=== PATIENT | male | born 1965 | race Caucasian/White ===

== ENCOUNTER → 2018-03-09 16:43 | Outpatient (CLI) | payer BC, SELFPAY ==
--- NOTE | 2018-03-09 16:50 | RAD_ITS ---
STUDY: X-RAY - ORBITS REASON FOR EXAM: Male, 53 years old. This study is being performed as a clearance examination for exclusion of orbital metal, prior to the performance of an MRI examination. TECHNIQUE: 2 view(s) of the orbits were obtained. COMPARISON: None. FINDINGS: Normal bilateral orbits without a metallic orbital foreign body. Normal visualized facial bones. Normal paranasal sinuses. The soft tissue structures are unremarkable. RAD/Orbits for Foreign Body IMPRESSION: No demonstrated metallic orbital foreign body. The patient is cleared for an MRI examination. Electronically Signed: Tim Rodriguez MD at 17:08 EST , Service support ,
--- NOTE | 2018-03-09 17:01 | MRI_ITS ---
STUDY: MRI LUMBAR SPINE WITHOUT CONTRAST REASON FOR EXAM: Male, 53 years old. Low back pain and radiculopathy TECHNIQUE: Standardized fat and water weighted pulse sequences were obtained in the sagittal and axial planes. COMPARISON: None FINDINGS: T12-L1: Mild endplate spurring. Normal disc height, hydration and morphology. Normal bilateral facet joints. Normal central canal and bilateral lateral recesses. Normal bilateral intervertebral neural foramina. Normal lumbar lordosis. There is no substantial scoliosis. Normal conus medullaris that terminates at T12-L1 L1-2: Mild endplate spurring. Normal disc height, hydration and minor bulging of the annulus. Normal bilateral facet joints. Normal central canal and bilateral lateral recesses. Normal bilateral intervertebral neural foramina. L2-3: Mild endplate spurring.. Narrowed disc height, desiccation and mild annular bulge.. Facet arthropathy greater on the left. Normal central canal and bilateral lateral recesses. Mild right neuroforaminal encroachment and moderate narrowing on the left. L3-4: Endplate spurring.. Normal disc height, desiccation and mild annular bulge. Bilateral facet arthropathy. Normal central canal. Moderate bilateral recess and neuroforaminal encroachment. L4-5: Normal endplates. Normal disc height, hydration and minor annular bulge. Mild facet arthropathy and thickening of ligamenta flava. Normal central canal and bilateral lateral recesses. Moderate bilateral recess and neuroforaminal stenosis. L5-S1: Normal endplates. Normal disc height, hydration and minimal annular bulge. Bilateral facet arthropathy. Normal central canal and bilateral lateral recesses. Mild bilateral neural foraminal encroachment Normal visualized sacral ala. Normal visualized paraspinous soft tissue structures. MRI/Spine Lumbar (Routine) IMPRESSION: No evidence for acute fracture or other significant bony pathology. Moderate spondylosis and disc degeneration Multilevel spinal stenosis secondary to disc disease and bony hypertrophy Electronically Signed: Felix Mahajan MD at 22:17 EST , Service support ,
--- OUTSIDE RECORDS SUMMARY | 2018-04-25 23:41 | XMS RPT_ITS | Summary of Care ---
:1965 Author Organization [facility] Address [address] [place] [address] Phone Care Team Providers Name Role Phone LuaRicky camejo Steve RAMIREZ Primary Care Provider Unavailable Encounter Details Date Type Department Care Team Description 03/30/2017 Hospital Encounter [facility] Allergies No Known Allergiesas of this encounter Medications Prescription Sig. Disp. Refills Start Date End Date Status aspirin 81 MG EC tablet Take 81 mg by Active mouth daily. omeprazole (PRILOSEC) 40 Take 1 90 capsule 3 06/09/2016 Active MG capsule capsule (40 mg total) by mouth daily. atorvastatin (LIPITOR) 80 Take 80 mg by Active MG tablet mouth daily. clopidogrel (PLAVIX) 75 Take 1 (one) 90 tablet 3 09/15/2016 Active mg tablet tablet (75 mg total) by mouth daily. hydroCHLOROthiazide Take 1 (one) 90 tablet 3 09/15/2016 Active (HYDRODIURIL) 25 MG tablet (25 mg tablet total) by mouth daily. metoprolol succinate Take 1 (one) 90 tablet 3 09/15/2016 Active (TOPROL-XL) 50 MG 24 hr tablet (50 mg tablet total) by mouth daily. nitroGLYCERIN (NITROSTAT) Place 1 (one) 25 tablet 4 09/15/2016 Active 0.4 MG SL tablet (0.4 tabletIndications: mg total) Coronary artery disease under the involving [place] coronary tongue every artery of [place] heart 5 (five) without angina pectoris minutes as needed for chest pain. valsartan (DIOVAN) 160 MG Take 1 (one) 90 tablet 3 09/15/2016 Active tablet tablet (160 mg total) by mouth daily. levothyroxine (SYNTHROID, Take 125 mcg Active LEVOTHROID) 125 MCG by mouth once tablet daily. fexofenadine (SHIVA) Take 180 mg Active 180 MG tablet by mouth daily. isosorbide mononitrate Take 1 (one) 30 tablet 11 03/31/2017 03/26/2018 Active (IMDUR) 60 MG 24 hr tablet (60 mg tablet total) by mouth daily. VENTOLIN HFA 90 Inhale 2 1 Inhaler 0 03/31/2017 04/30/2017 Active mcg/actuation inhaler (two) puffs every 6 (six) hours as needed for wheezing. as of this encounter Active Problems Problem Noted Date Chest pain 03/30/2017 Last Assessment & Plan: Chronic stable angina pectoris with worsening symptoms when exposed to extreme cold. No evidence of an acute coronary syndrome. Coronary angiogram June 2016 with mild disease in LAD, mild disease in circumflex artery, and moderate nonobstructive stenosis in RCA. Angiographically stenosis appears 70% but FFR was 0.96 which is consistent with nonobstructive disease. Ejection fraction was 55%. Presently ECG without ischemic findings. Troponin remains negative. Given recent documentation of stable coronary arteries disease, I recommend intensification of medical regimen. Recommend increasin g Imdur to 60 mg. Also recommended prophylactic use of sublingual nitroglycerin when planning to do work in cold temperatures. Patient can follow-up with Dr. Pond in [place]. No further inpatient evaluation is indicated at this time. Recommend returning to work on April 02. Coronary artery disease involving [place] coronary artery of [place] heart 09/17/2015 without angina pectoris Overview: 04/2014-Cx and RPL stents Last Assessment & Plan: Feeling better-- lost weight and looks good Imdur working Doing well, Medications reviewed and will continue current meds Followup 1 year Claudication (HCC) 09/17/2015 Overview: R Calf-2016 with 1/2 mile Last Assessment & Plan: Recommended to quit smoking Hyperlipidemia 05/10/2014 Overview: Cannot take statins except low dose lovastatin Last Assessment & Plan: Can take atorvastatin Hypertension 05/09/2014 Last Assessment & Plan: Continue current meds Resolved Problems Problem Noted Date Resolved Date Unstable angina (HCC) 05/09/2014 09/17/2015 Last Assessment & Plan: Pt with recent progressive angina. Cath had high grade Cx which was stented. He has a long RCA lesion we are trying with meds Social History Tobacco Use Types Packs/Day Years Used Date Current Every Day Smoker 1 40 Smokeless Tobacco: Never Used Alcohol Use Drinks/Week oz/Week Comments Yes 0 Standard drinks or equivalent 0.0 Rare alcohol use Sex Assigned at Date Recorded Not on file as of this encounter Miscellaneous Notes Transfer Center Note - Rosangela Rivero RN - 03/30/2017 7:49 PM ESTDx: Chest Pain Narrative: Report per RONAN Rizzo and Alexus RN: 52 yom with left chest pain radiating to left arm for last day. He'd been out splitting wood yesterday and outside today. States he just doesn't feel right and is achy. Chest has a dull ache similar to past chest pain. Has had previous heart caths w/[place] [facility]-up so far is negative. [facility] has no beds and patient requests transfer [place] [facility] [place] to [place] [facility] [place] [facility]. Assessment: AAOx3. Denies SOB or nausea. Skin sallow/warm/dry. Chest ache remains, somewhat intermittent. Patient took ASA 81mg @ home and NTG x1. Patient's bedside. Vitals: 146/81-SB/NSR 50 to 70-22-97.6-99% on rm air. In process of starting an IV Meds given in ED: ASA 81mg. Labs: WBC 7.9, K 3.3, BUN/Cr 10/0.7, Glucose 92, Troponin (-) Radiology/EKG: CXR not read yet. EKG without acute change in this encounter Plan of Treatment Upcoming Encounters Date Type Specialty Care Team Description 06/08/2017 Office Visit Cardiology Gadiel Buckley MD [address] [place] [address] [phone] Health Maintenance Due Date Last Done Comments COLONOSCOPY 1965 HEPATITIS C SCREENING 1965 TETANUS EVERY 10 YR 1965 SEQUENTIAL INFLUENZA VACCINE (#1) 2016 as of this encounter Implants Implanted Type Area Ammonia Distiller Device Identifier Expiration Model / Serial / Date Lot Stent 3.5 X 12 Resolute Otw - [id number] Stent N/A: [employer] [id number] 07/14/2014 [id number] / Implanted: Qty: 1 on 05/09/2014 by Gadiel Buckley MD Heart / [id number] Stent 2.5 X 12 Resolute Otw - [id number] Stent [employer] [id number] 06/06/2015 [id number] / Implanted: Qty: 1 on 05/18/2014 by Gadiel Buckley MD [id number] / [id number] as of this encounter Insurance Payer Benefit Plan / Group Subscriber ID Type Phone Address [employer] MED[employer] [id number] as of this encounter
--- OUTSIDE RECORDS SUMMARY | 2018-04-25 23:41 | XMS RPT_ITS | Summary of Care ---
:1965 Author Organization [facility] Address [address] [phone] Phone Care Team Providers Name Role Phone Stoney Ricky Steve RAMIREZ Primary Care Provider Unavailable Encounter Details Date Type Department Care Team Description 03/30/2017 - [facility] Hospitalists, Generic [address] [id number] Chest pain, unspecified type; 03/31/2017 Rapid Diagnosis Andrea Lerma MD [address] [phone] Hypokalemia; [address] [place] [address] Shawn Long MD [address] [place] [address] ALIS (obstructive sleep apnea); [place] Chronic obstructive pulmonary disease, unspecified COPD type ([facility]) [place] [address] Allergies No Known Allergiesas of this encounter Medications Prescription Sig. Disp. Refills Start End Date Status Date aspirin 81 MG EC tablet Take 81 mg Active by mouth daily. omeprazole (PRILOSEC) 40 Take 1 90 capsule 3 Active MG capsule capsule (40 7 mg total) by mouth daily. atorvastatin (LIPITOR) Take 80 mg Active 80 MG tablet by mouth daily. clopidogrel (PLAVIX) 75 Take 1 (one) 90 tablet 3 Active mg tablet tablet (75 7 mg total) by mouth daily. hydroCHLOROthiazide Take 1 (one) 90 tablet 3 Active (HYDRODIURIL) 25 MG tablet (25 7 tablet mg total) by mouth daily. metoprolol succinate Take 1 (one) 90 tablet 3 Active (TOPROL-XL) 50 MG 24 hr tablet (50 7 tablet mg total) by mouth daily. nitroGLYCERIN Place 1 25 tablet 4 Active (NITROSTAT) 0.4 MG SL (one) tablet 7 tabletIndications: (0.4 mg Coronary artery disease total) under involving sioux the tongue coronary artery of every 5 sioux heart without (five) angina pectoris minutes as needed for chest pain. valsartan (DIOVAN) 160 Take 1 (one) 90 tablet 3 Active MG tablet tablet (160 7 mg total) by mouth daily. levothyroxine Take 125 mcg Active (SYNTHROID, LEVOTHROID) by mouth 125 MCG tablet once daily. fexofenadine (SHIVA) Take 180 mg Active 180 MG tablet by mouth daily. isosorbide mononitrate Take 1 (one) 30 tablet 11 03/26/20 Active (IMDUR) 60 MG 24 hr tablet (60 8 18 tablet mg total) by mouth daily. VENTOLIN HFA 90 Inhale 2 1 Inhaler 0 04/30/19 Active mcg/actuation inhaler (two) puffs 8 18 every 6 (six) hours as needed for wheezing. azithromycin (ZITHROMAX) Take 1 (one) 5 tablet 0 04/05/19 Active 250 MG tablet tablet (250 8 18 mg total) by mouth daily for 5 days. ALLERGY RELIEF, Take 180 mg 03/30/19 Discontinued FEXOFENADINE, 180 mg by mouth 6 18 tablet daily. isosorbide mononitrate Take 1 30 tablet 11 03/30/19 Discontinued (IMDUR) 30 MG 24 hr tablet (30 7 18 tablet mg total) by mouth daily. levothyroxine Take 100 mcg 03/30/19 Discontinued (SYNTHROID, LEVOTHROID) by mouth 18 100 MCG tablet once daily. isosorbide mononitrate Take 30 mg 03/31/19 Discontinued (IMDUR) 30 MG 24 hr by mouth 18 tablet daily. as of this encounter Active Problems Problem [...] Patient can follow-up with Dr. Pond in [place]. No further inpatient evaluation is indicated at this time. Recommend returning to work on April 02. Coronary artery disease involving sioux coronary artery of sioux heart 09/17/2015 without angina pectoris Overview: 04/2014-Cx and RPL stents Last Assessment & Plan: Feeling better-- lost weight and looks good Imdur working Doing well, Medications reviewed and will continue current meds Followup 1 year Claudication ([facility]) 09/17/2015 Overview: R Calf-2016 with 1/2 mile [...] Not on file as of this encounter Last Filed Vital Signs Vital Sign Reading Time Taken Blood Pressure 123/76 03/31/2017 7:52 AM EST Pulse 61 03/31/2017 7:52 AM EST Temperature 36.5 ??C (97.7 ??F) 03/31/2017 7:52 AM EST Respiratory Rate 14 03/31/2017 7:52 AM EST Oxygen Saturation 93% 03/31/2017 7:52 AM EST Inhaled Oxygen Concentration - - Weight 105.3 kg (232 lb 2.3 oz) 03/30/2017 11:29 PM EST Height 180.3 cm (5' 11) 03/30/2017 11:29 PM EST Body Mass Index 32.38 03/30/2017 11:29 PM EST in this encounter Discharge Instructions Arabella Carranza, KOBI - 03/31/2017Bronchitis: Care Instructions Your Care Instructions Bronchitis is inflammation of the bronchial tubes, which carry air to the lungs. The tubes swell andproduce mucus, or phlegm. The mucus and inflamed bronchial tubes make you cough. You may have trouble breathing. Most cases of bronchitis are caused by viruses like those that cause colds. Antibiotics usually do not help and they may be harmful. Bronchitis usually develops rapidly and lasts about 2 to 3 weeks in otherwise healthy people. Follow-up care is a gill part of your treatment and safety. Be sure to make and go to all appointments, and call your doctor if you are having problems. It's also a good idea to know your test results and keep a list of the medicines you take. How can you care for yourself at home? ?? Take all medicines exactly as prescribed. Call your doctor if you think you are having a problem with your medicine. ?? Get some extra rest. ?? Take an psjj-uyu-zobtzun pain medicine, such as acetaminophen (Tylenol), ibuprofen (Advil, Motrin), or naproxen (Aleve) to reduce fever and relieve body aches. Read and follow all instructions on the label. ?? Do not take two or more pain medicines at the same time unless the doctor told you to. Many pain medicines have acetaminophen, which is Tylenol. Too much acetaminophen (Tylenol) can be harmful. ?? Take an ucpy-sze-baoykps cough medicine that contains dextromethorphan to help quiet a dry, hacking cough so that you can sleep. Avoid cough medicines that have more than one active ingredient. Readand follow all instructions on the label. ?? Breathe moist air from a humidifier, hot shower, or sink filled with hot water. The heat and moisture will thin mucus so you can cough it out. ?? Do not smoke. Smoking can make bronchitis worse. If you need help quitting, talk to your doctor about stop-smoking programs and medicines. These can increase your chances of quitting for good. When should you call for help? Call 911 anytime you think you may need emergency care. For example, call if: ?? You have severe trouble breathing. Call your doctor now or seek immediate medical care if: ?? You have new or worse trouble breathing. ?? You cough up dark brown or bloody mucus (sputum). ?? You have a new or higher fever. ?? You have a new rash. Watch closely for changes in your health, and be sure to contact your doctor if: ?? You cough more deeply or more often, especially if you notice more mucus or a change in the colorof your mucus. ?? You are not getting better as expected. Where can you learn more? Log into your personal health record on https://[employer]Everwise and enter H333 in the Education box to learn more about Bronchitis: Care Instructions. Current as of: August 20, 2015 Content Version: 11.2 ?? 0813-7135 [employer]. Care instructions adapted under license by your healthcare professional. If you have questions about a medical condition or this instruction, always ask your healthcare professional. [employer] disclaims any warranty or liability for your use of this information. in this encounter Progress Notes Carmenza Kat RN - 03/31/2017 10:10 AM ESTPt dc per orders. rn educated pt on avs, meds and follow up apts. All questions answered, NAD. IV removed no complications- intact.Arabella Carranza CNP - 03/31/2017 9:15 AM ESTOBSERVATION DISCHARGE NOTE Assessment and Plan Lakeshia Cook is a 52 y.o. male patient of Ricky Lua DO with history of Obesity, ALIS, COPD, CAD, MVP, HTN, Hyperlipidemia, Hypothyroidism, transferred from [place] with c/o chest pain. ?? 1. Chest pain- Hx of CAD. EKG NSR with no acute ST/T changes. Serial troponin negative. Continue ASA, Plavix,Toprol, and Lipitor. Cardiology consulted, home imdur increased. Follow up outpatient. 2. Acute Bronchitis: Patient with increasing productive cough and wheezing. CXR ([facility]) without acuteprocess. Azithromycin on discharge with albuterol PRN. 3. Hypokalemia- Potassium 3.3 at OSH normalized after replacement. 4. ALIS- Non-compliant with CPAP- ordered during hospitalization. 5. COPD- Duonebs PRN. 6. Essential HTN- Continue Toprol and Diovan. 7. Hypothyroidism- Continue Synthroid. 8. DVT prophylaxis- Lovenox. Physical Exam General: no acute distress CV: regular rate and rhythm; no murmur, rubs, gallops Resp: Wheezes and ronchi noted to the posterior RLL with kim productive cough. No dyspnea. Abdomen: soft, non-tender, non-distended, positive bowel sounds Neuro: no gross deficits Disposition The patient was appropriately risk stratified for observation level of care. I had a rskx-xh-zbao encounter with the patient on the day of discharge which included an appropriate physical exam. Discharge instructions and follow-up care were discussed in person with the patient.in this encounter H&P Notes Shawn Long MD - 03/30/2017 11:35 PM ESTFormatting of this note may be different from the original. [facility] Patient Name: Lakeshia Cook : 1965 MR #: [id number] Admit Date: 1000406 Physicians: Ricky Lua DO (Family); No ref. provider found (Referring) Perpetual Assessment: Lakeshia Cook is a 52 y.o. male patient of Ricky Lua DO with history of Obesity, ALIS, COPD, CAD, MVP, HTN, Hyperlipidemia, Hypothyroidism, presented with chest pain. 1. Chest pain- EKG NSR with no acute ST/T changes. Follow serial troponin. Continue ASA, Plavix, Imdur, Toprol, and Lipitor. Patient follows with Dr. Buckley- consulted. 2. Hypokalemia- Potassium 3.3 at OSH. Replace with 20 meq Kdur. Repeat chem 7 in AM. 3. ALIS- Non-compliant with CPAP- ordered during hospitalization. 4. COPD- Duonebs PRN. 5. Essential HTN- Continue Toprol and Diovan. 6. Hyperlipidemia- Continue Lipitor. 7. Hypothyroidism- Continue Synthroid. 8. DVT prophylaxis- Lovenox. Chief Complaint: Chest pain History of Present Illness: 52 y.o. male patient of Ricky Lua DO with history of Obesity, ALIS, COPD, CAD, MVP, HTN, Hyperlipidemia, Hypothyroidism. Patient was splitting wood yesterday when he developed chest pain. Chest pain has been intermittent since onset lasting hours at a time. Chestpain is described in dullness in the left chest radiating to the LUE with numbness in his finger tips. He acknowledges some associated dyspnea and palpitations. He took SL ntg at home with some improvement. Patient was initially seen at [facility] and subsequently transferred to [facility] as patient follows with Dr. Buckley. Patient currently has mild residual chest pain. Past Medical History: Past Medical History: Diagnosis Date ??? CAD (coronary artery disease) ??? COPD (chronic obstructive pulmonary disease) (HCC) ??? Hyperlipidemia ??? Hypertension ??? Hypothyroidism ??? MVP (mitral valve prolapse) ??? ALIS (obstructive sleep apnea) Past Surgical Hisory: Past Surgical History: Procedure Laterality Date ??? CARDIAC CATHETERIZATION N/A 05/09/2014 [facility] CX Mid; Surgeon: Gadiel Buckley MD; Location: [facility]; Service: ??? CARDIAC CATHETERIZATION N/A 05/18/2014 [facility] Posterior Lateral Branch Distal; Surgeon: Gadiel Buckley MD; Location: [facility]; Service: ??? CARDIAC CATHETERIZATION N/A 07/15/2016 Procedure: Left Heart Cath Possible PTCA/Stent; Surgeon: Gadiel Buckley MD; Location: [facility]; Service: ??? COLON SURGERY ??? CORONARY STENT PLACEMENT 05/09/14 ??? HERNIA REPAIR x 2 ??? SHOULDER SURGERY Family History: Family History Problem Relation Age of Onset ??? Heart disease Father ??? Hypertension Father ??? Heart attack Father ??? Heart failure Father ??? Heart failure Mother Social History: History Smoking Status ??? Current Every Day Smoker ??? Packs/day: 1.00 ??? Years: 40.00 Smokeless Tobacco ??? Never Used History Alcohol Use ??? 0.0 oz/week Comment: Rare alcohol use History Drug Use No Allergy Information: I have reviewed the patient's allergies. Patient has no known allergies. Home Medications: Home medications were reviewed. ROS: The following system(s) were reviewed and pertinent findings noted: CV-as in HPI All other systems reviewed and negative other than HPI PHYSICAL EXAMINATION: Vital Signs- There were no vitals taken for this visit. General- Appears stated age. No acute distress. Eyes- Pupils round and reactive to light bilaterally. Conjunctiva/sclera clear bilaterally. HEENT- Normocephalic/atraumatic. Oropharynx WNL, mucous membranes moist. Neck- Supple, trachea midline, no thyromegaly,no palpable adenopathy Cardiovascular- Regular rate and rhythm. No clicks, rubs, murmurs, or gallops noted. No peripheraledema noted. Respiratory- Clear to auscultation bilaterally without wheezes, rhonchi, or crackles noted. No accessory muscles or increased work of breathing. Abdomen- Soft, nontender, nondistended, normal bowel sounds. Skin- Normal turgor, well-hydrated, no rashes noted. Neurological- Cranial nerves 2 through 12 intact grossly. No focal neurological deficits noted. Psych- Alert and oriented times 3. Normal mood and affect. Laboratory and Additional Data Reviewed: Laboratory 03/30/17 11:41 PM Radiology 03/30/17 11:41 PM Cardiology 03/30/17 11:41 PM Medications 03/30/17 11:41 PM Transcriptions 03/30/17 11:41 PM in this encounter Consult Notes Ricky Sorto DO - 03/31/2017 8:37 AM ESTAssociated Order(s): IP CONSULT TO CARDIOLOGYFormatting of this note may be different from the original. CARDIOLOGY CONSULT NOTE Assessment and Plan: Chest pain Assessment & Plan Chronic stable angina pectoris with worsening symptoms [...] I recommend intensification of medical regimen. Recommend increasing Imdur to 60 mg. Also recommended prophylactic use of sublingual nitroglycerin when planning to dowork in cold temperatures. Patient can follow-up with Dr. Pond in [place]. No further inpatient evaluation is indicatedat this time. Recommend returning to work on April 02. Chief Complaint/Reason for Visit: Chest pain History of Present Illness: Lakeshia Cook is a 52 y.o. y/o male presenting with complaints of initially on Thursday. The patient reports that approximately 1 hour into splitting wood in the cold he developed midsternal chest tightness. The pain lasted for several hours on and off. By the evening the pain had resolved. He was taking his regular medications but did not take any additional nitroglycerin. On Thursday he had a sense of his heart beating hard and some heaviness in his chest. This occurred after he returned in from standing outside watching people jump into the leg. He himself did not jump into the leg. However when he returned inside it was lying down he felt the hard heart beats. His took his pulse and noted that it was regular and not rapid as best she can determine. He did have some heaviness. The pain itself was different than what he experienced on Thursday. After the second episode he presented to the emergency department. He was more concerned with the second episode as he had some numbness and tingling in his fingers with some radiation into his chest region. Hedenies any shortness of breath. He has not had any recent exertional chest pain symptoms. Troponin remains negative. ECG without ischemic findings. Coronary angiogram June 2016 documentedstable nonobstructive disease as noted above. History: Past Medical History: Diagnosis Date ??? CAD (coronary artery disease) ??? COPD (chronic obstructive pulmonary disease) (HCC) ??? Hyperlipidemia ??? Hypertension ??? Hypothyroidism ??? MVP (mitral valve prolapse) ??? ALIS (obstructive sleep apnea) Past Surgical History: Procedure Laterality Date ??? CARDIAC CATHETERIZATION N/A 05/09/2014 [facility] CX Mid; Surgeon: Gadiel Buckley MD; Location: [facility]; Service: ??? CARDIAC CATHETERIZATION N/A 05/18/2014 [facility] Posterior Lateral Branch Distal; Surgeon: Gadiel Buckley MD; Location: [facility]; Service: ??? CARDIAC CATHETERIZATION N/A 07/15/2016 Procedure: Left Heart Cath Possible PTCA/Stent; Surgeon: Gadiel Buckley MD; Location: [facility]; Service: ??? COLON SURGERY ??? CORONARY STENT PLACEMENT 05/09/14 ??? HERNIA REPAIR x 2 ??? SHOULDER SURGERY Family History Problem Relation Age of Onset ??? Heart disease Father ??? Hypertension Father ??? Heart attack Father ??? Heart failure Father ??? Heart failure Mother Social History Social History ??? Marital status: Spouse name: N/A ??? Number of children: N/A ??? Years of education: N/A Occupational History ??? Not on file. Social History Main Topics ??? Smoking status: Current Every Day Smoker Packs/day: 1.00 Years: 40.00 ??? Smokeless tobacco: Never Used ??? Alcohol use 0.0 oz/week Comment: Rare alcohol use ??? Drug use: No ??? Sexual activity: Yes Partners: Male Other Topics Concern ??? Not on file Social History Narrative ??? No narrative on file Allergy Information: I have reviewed the patient's allergies. Patient has no known allergies. Home Medications: Outpatient Prescriptions as of 03/30/2017 Medication Sig ??? aspirin 81 MG EC tablet Take 81 mg by mouth daily. ??? atorvastatin (LIPITOR) 80 MG tablet Take 80 mg by mouth daily. ??? clopidogrel (PLAVIX) 75 mg tablet Take 1 (one) tablet (75 mg total) by mouth daily. ??? hydroCHLOROthiazide (HYDRODIURIL) 25 MG tablet Take 1 (one) tablet (25 mg total) by mouth daily. ??? metoprolol succinate (TOPROL-XL) 50 MG 24 hr tablet Take 1 (one) tablet (50 mg total) by mouth daily. ??? nitroGLYCERIN (NITROSTAT) 0.[address] 1 (one) tablet (0.4 mg total) under the tongue every 5 (five) minutes as needed for chest pain. ??? omeprazole (PRILOSEC) 40 MG capsule Take 1 capsule (40 mg total) by mouth daily. ??? valsartan (DIOVAN) 160 MG tablet Take 1 (one) tablet (160 mg total) by mouth daily. Review of Systems: Review of Systems Constitution: Negative for weight gain and weight loss. HENT: Negative for nosebleeds. Eyes: Negative for blurred vision. Cardiovascular: Positive for chest pain and palpitations. Negative for claudication, dyspnea on exertion, irregular heartbeat, leg swelling, near- syncope, orthopnea, paroxysmal nocturnal dyspnea and syncope. Respiratory: Negative for cough, hemoptysis and shortness of breath. Endocrine: Negative for cold intolerance. Skin: Negative for poor wound healing. Musculoskeletal: Negative for muscle weakness. Gastrointestinal: Negative for bloating and vomiting. Neurological: Negative for dizziness, focal weakness and light-headedness. Psychiatric/Behavioral: Negative for altered mental status. Physical Examination: Vital Signs: BP 123/76 (BP Location: Left arm, Patient Position: Lying) Pulse 61 Temp 97.7 ??F (36.5 ??C) (Oral) Resp 14 Ht 5' 11 Wt 105.3 kg (232 lb 2.3 oz) SpO2 93% BMI 32.38 kg/m?? Physical Exam Constitutional: He appears well-developed. No distress. HENT: Head: Normocephalic and atraumatic. Eyes: No scleral icterus. Neck: Normal range of motion. Cardiovascular: Normal rate, regular rhythm, normal heart sounds and intact distal pulses. Exam reveals no friction rub. No murmur heard. Pulmonary/Chest: Effort normal. No respiratory distress. He has no wheezes. He has no rales. He exhibits no tenderness. Abdominal: Soft. He exhibits no distension. There is no tenderness. There is no rebound. Musculoskeletal: He exhibits no edema or tenderness. Neurological: He is alert. Skin: Skin is warm. No rash noted. He is not diaphoretic. No erythema. Psychiatric: He has a normal mood and affect. Intake/Output last 3 shifts: No intake/output data recorded. Laboratory and Additional Data Reviewed: Results from last 7 days Lab Units 03/31/17 0448 03/30/17 2349 TROPONIN T ng/mL <0.010 <0.010 Results from last 7 days Lab Units 03/31/17 0448 SODIUM mmol/L 140 POTASSIUM mmol/L 4.0 CHLORIDE mmol/L 100 BUN mg/dL 11 CREATININE mg/dL 0.79 GLUCOSE mg/dL 90 CALCIUM mg/dL 8.9 Results from last 7 days Lab Units 03/31/17 0448 WBC K/mcL 7.61 HGB g/dL 14.4 HCT % 42.1 PLT K/mcL 180 Radiographics: Pertinent studies independently reviewed and noted in HPI. Cardiac Studies: I Independently reviewed and noted in HPI. ECG: Normal sinus rhythm without ischemic findings. Patient Name: Lakeshia Cook Admit Date: 1000406 MR #: [id number] : 1965 Physicians: Ricky Lua DO (Family); No ref. provider found (Referring) in this encounter Miscellaneous Notes Assessment & Plan Note - Ricky Sorto DO - 03/31/2017 8:34 AM ESTAssociated Problem(s): Chest painChronic stable angina pectoris with worsening symptoms when exposed to extreme cold. No evidence ofan acute coronary syndrome. Coronary angiogram June 2016 with mild disease in LAD, mild disease incircumflex artery, and moderate nonobstructive stenosis in RCA. Angiographically stenosis appears 70% but FFR was 0.96 which is consistent with nonobstructive disease. Ejection fraction was 55%. Presently ECG without ischemic findings. Troponin remains negative. Given recent documentation of stable coronary arteries disease, I recommend intensification of medical regimen. Recommend increasing Imdur to 60 mg. Also recommended prophylactic use of sublingual nitroglycerin when planning to dowork in cold temperatures. Patient can follow-up with Dr. Pond in [place]. No further inpatient evaluation is indicatedat this time. Recommend returning to work on April 02. Plan of Care - Tae Reid RRT - 03/31/2017 5:37 AM ESTFormatting of this note may be different from the original. Problem: Breathing Pattern - Ineffective Goal: Effective breathing pattern Outcome: Not Met 1. Assess respiratory status through observation of chest for excursion, breath sounds, cough effort& sputum production, and respiratory rate. 2. Notify physician of clinical changes. Continue current therapy Category B Medications: IP Meds - Nasal and Inhaled Frequency ipratropium-albuterol (DUO-NEB) 0.5-2.5 mg/3 ml nebulizer solution 3 mL Every 6 hours PRN (RT) Orders: Respiratory Orders Start Ordered 03/31/17 2200 CPAP At bedtime Question: FIO2 Answer: 03/30/17 6308 Plan of Care - Marli King RN - 03/31/2017 2:00 AM ESTProblem: Actual or potential alteration in health Goal: Knowledge of Enviroment Outcome: Completed Date Met: 03/31/17 Patient oriented to Observation Unit: Yes Patient oriented to room: Yes Plan of care reviewed with patient: yes Extended Emergency Contact Information Primary Emergency Contact: Edgard Cook Address: [address] [place] [address] of [address] Relation: Spouse Primary Care Physician: Ricky Lua, Preferred Pharmacy: [facility] [place] Plan for discharge reviewed: Yes How will patient get home: spouse Discharge suite reviewed: Yes in this encounter Plan of Treatment Health Maintenance Due Date Last Done Comments COLONOSCOPY 1965 HEPATITIS C SCREENING 1965 TETANUS EVERY 10 YR 1965 SEQUENTIAL INFLUENZA VACCINE (#1) 2016 as of this encounter Implants Implanted Type Area Access Services Librarian Device Identifier Expiration Model / Serial / Date Lot Stent 3.5 X 12 Resolute Otw - [id number] Stent N/A: [employer] [id number] 07/14/2014 [id number] / Implanted: Qty: 1 on 05/09/2014 by Gadiel Buckley MD Heart / [id number] Stent 2.5 X 12 Resolute Otw - [id number] Stent [employer] [id number] 06/06/2015 [id number] / Implanted: Qty: 1 on 05/18/2014 by Gadiel Buckley MD [id number] / [id number] as of this encounter Results CBC (03/31/2017 4:48 AM) Component Value Ref Range WBC 7.61 4.50 - 11.00 K/mcL RBC 4.49 (L) 4.50 - 5.90 M/mcL Hemoglobin 14.4 13.5 - 17.5 g/dL Hematocrit 42.1 41.0 - 53.0 % MCV 93.8 80.0 - 100.0 fL MCH 32.1 26.0 - 34.0 pg MCHC 34.2 31.0 - 37.0 g/dL Platelets 180 150 - 400 K/mcL RDW - CV 12.6 11.6 - 14.8 % MPV 11.1 9.0 - 15.5 fL Nucleated RBC 0.0 % Nucleated RBC Abs 0.00 0.00 - 0.00 K/mcL Specimen Performing Laboratory Blood [facility] [address] [place] [address] Basic Metabolic Panel (03/31/2017 4:48 AM) Component Value Ref Range Sodium 140 135 - 145 mmol/L Potassium 4.0 3.5 - 5.1 mmol/L Chloride 100 98 - 108 mmol/L Bicarbonate 29 21 - 32 mmol/L Anion Gap 15 10 - 20 mmol/L Glucose 90 65 - 99 mg/dL BUN 11 8 - 25 mg/dL Creatinine 0.79 0.50 - 1.30 mg/dL eGFR 103 >=60 mL/min/1.73 m2 BUN/Creatinine Ratio 13.9 10.0 - 20.0 Calcium 8.9 8.4 - 10.2 mg/dL Specimen Performing Laboratory Blood [facility] [address] [place] [address] Narrative The eGFR should be used for monitoring renal function only and not for medication dosing. Troponin (03/31/2017 4:48 AM) Component Value Ref Range Troponin T <0.010 <0.040 ng/mL Specimen Performing Laboratory Blood [facility] [address] [place] [address] Troponin (03/30/2017 11:49 PM) Component Value Ref Range Troponin T <0.010 <0.040 ng/mL Specimen Performing Laboratory Blood [facility] [address] [place] [address] in this encounter Visit Diagnoses Diagnosis Chest pain, unspecified type Hypokalemia Hypopotassemia ALIS (obstructive sleep apnea) Obstructive sleep apnea (adult) (pediatric) Chronic obstructive pulmonary disease, unspecified COPD type (HCC) Administered Medications Inactive Administered Medications - up to 3 most recent administrations Medication Order MAR Action Action Date Dose Rate Site aspirin EC tablet 81 mg Given 03/31/2017 09:41 EST 81 mg 81 mg, Oral, Daily, First dose on Thu03/31/17 at 0900, DO NOT CRUSH OR CHEW. atorvastatin (LIPITOR) tablet 80 mg Given 03/31/2017 09:42 EST 80 mg 80 mg, Oral, Daily, First dose on Thu03/31/17 at 0900 clopidogrel (PLAVIX) tablet 75 mg Given 03/31/2017 09:41 EST 75 mg 75 mg, Oral, Daily, First dose on Thu03/31/17 at 0900 hydroCHLOROthiazide (HYDRODIURIL) tablet 25 mg Given 03/31/2017 09:42 EST 25 mg 25 mg, Oral, Daily, First dose on Thu03/31/17 at 0900 ipratropium-albuterol (DUO-NEB) 0.5-2.5 mg/3 ml Given 03/31/2017 09:46 EST 3 mL nebulizer solution 3 mL 3 mL, Inhalation, Every 6 hours PRN (RT), wheezing, shortness of breath, Starting 03/30/17 at 2339 isosorbide mononitrate (IMDUR) 24 hr tablet 60 mg Given 03/31/2017 09:41 EST 60 mg 60 mg, Oral, Daily, First dose on Thu03/31/17 at 0930, Include a nitrate free period DO NOT CRUSH OR CHEW. levothyroxine (SYNTHROID, LEVOTHROID) tablet 125 Given 03/31/2017 06:05 EST 125 mcg mcg 125 mcg, Oral, Daily, First dose on Thu03/31/17 at 0600, For patients on continuous tube feed: Hold TF from 1 hr before until 1 hr after each dose. TF rate may need adjustment to meet caloric needs. metoprolol succinate (TOPROL-XL) 24 hr tablet 50 Given 03/31/2017 09:41 EST 50 mg mg 50 mg, Oral, Daily, First dose on Thu03/31/17 at 0900, DO NOT CRUSH OR CHEW. pantoprazole (PROTONIX) EC tablet 40 mg Given 03/31/2017 09:42 EST 40 mg 40 mg, Oral, Daily, First dose on Thu03/31/17 at 0900, DO NOT CRUSH OR CHEW. potassium chloride SA (K-DUR,KLOR-CON) CR tablet Given 03/31/2017 02:11 EST 20 mEq 20 mEq 20 mEq, Oral, Once, Thu03/31/17 at 0030, For 1 dose, DO NOT CRUSH OR CHEW sodium chloride (PF) (NS) 0.9 % flush 5 mL Given 03/31/2017 06:06 EST 5 mL 5 mL, Intravenous, Every 8 hours scheduled, First dose on Thu03/31/17 at 0030, Saline lock valsartan (DIOVAN) tablet 160 mg Given 03/31/2017 09:42 EST 160 mg 160 mg, Oral, Daily, First dose on Thu03/31/17 at 0900 in this encounter Insurance Payer Benefit Plan / Group Subscriber ID Type Phone Address [employer] [id number] [phone] [address] [place] [address] as of this encounter
--- OUTSIDE RECORDS SUMMARY | 2018-04-25 23:41 | XMS RPT_ITS ---
:1965 Author Organization [place] Care Team Providers Name Role Phone Moises Spencer Attending Unavailable Moises Spencer Referring Unavailable Jan Lua Primary Care Unavailable FanMert mercedes Admitting Unavailable Mert Ambrose Attending Unavailable Viayasmeen, Dr. Taylor Monterroso Admitting Unavailable Viau, Dr. Taylor Monterroso Attending Unavailable Chun Meneses Admitting Unavailable Chun Meneses Attending Unavailable Jan Lua Primary Care Unavailable Gadiel Herrera Admitting Unavailable Gadiel Herrera Attending Unavailable Gadiel Herrera Referring Unavailable Jan Lua Primary Care Unavailable GabrielGerman Attending Unavailable Jan Lua Primary Care Unavailable Khang Fountain Admitting Unavailable HelKhang cota Attending Unavailable Jan Lua Primary Care Unavailable GabrielGerman cristina Admitting Unavailable GabrielGerman cristina Attending Unavailable Jan Lua Primary Care Unavailable Khang Fountain Admitting Unavailable Khang Fountain Attending Unavailable Jan Lua Primary Care Unavailable GabrielGerman Attending Unavailable Jan Lua Primary Care Unavailable GADIEL HERRERA Attending Unavailable JAN LUA Primary Care Unavailable GADIEL HERRERA Attending Unavailable JAN LUA Primary Care Unavailable GADIEL HERRERA Admitting Unavailable JAN LUA Referring Unavailable JAN LUA Primary Care Unavailable GADIEL HERRERA Attending Unavailable JAN LUA Primary Care Unavailable GADIEL HERRERA Attending Unavailable JAN LUA Primary Care Unavailable MERT AMBROSE Attending Unavailable JAN LUA Primary Care Unavailable ANYA BARKER Attending Unavailable JAN LUA Primary Care Unavailable TAYLOR CHAN Attending Unavailable JAN LUA Primary Care Unavailable FANMERT MERCEDES Attending Unavailable JAN LUA Primary Care Unavailable PROBLEMS PROBLEMS DATE TYPE CONDITION / CODE ATTENDING STATUS SOURCE 10/28/2017 Admitting Other intervertebral FANMAGO, MERT Active [facility] diagnosis disc degeneration, LEONORA Three lumbar region / Repository M51.36(ICD-10) 10/28/2017 Admitting Sacroiliitis, not FANELLO, MERT Active [facility] diagnosis elsewhere classified LEONORA Three / M46.1(ICD-10) Repository 06/08/2017 Admitting 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 Three [place] coronary Repository artery without angina pectoris / I25.10(ICD-10) PROCEDURES PROCEDURES No Procedure Records FoundRESULTS RESULTS SPINE LUMBAR Observed: 03/09/2018 Status: F Source: TOMBALL (ROUTINE) 5:01 PM REPOSITORY [facility] Imaging Services [address] [place] [address] Spine Lumbar (Routine) MR#: [id number] Acct: [id number] Name: RAMIREZYoonLAKESHIA Alida Rep #: [id number] : 1965 M 53 From: Felix Mahajan MD PCP: Jan Lua MD Status: REG CLI Study: Spine Lumbar (Routine) Date of Exam: 03/09/18 Exam# [id number] Ordering Dr: Moises Spencer MD STUDY: MRI LUMBAR SPINE WITHOUT CONTRAST REASON FOR EXAM: Male, 53 years old. Low back pain and radiculopathy TECHNIQUE: Standardized fat and water weighted pulse sequences were obtained in the sagittal and axial planes. COMPARISON: None FINDINGS: T12-L1: Mild endplate spurring. Normal disc height, hydration and morphology. Normal bilateral facet joints. Normal central canal and bilateral lateral recesses. Normal bilateral intervertebral neural foramina. Normal lumbar lordosis. There is no substantial scoliosis. Normal conus medullaris that terminates at T12-L1 L1-2: Mild endplate spurring. Normal disc height, hydration and minor bulging of the annulus. Normal bilateral facet joints. Normal central canal and bilateral lateral recesses. Normal bilateral intervertebral neural foramina. L2-3: Mild endplate spurring.. Narrowed disc height, desiccation and mild annular bulge.. Facet arthropathy greater on the left. Normal central canal and bilateral lateral recesses. Mild right neuroforaminal encroachment and moderate narrowing on the left. L3-4: Endplate spurring.. Normal disc height, desiccation and mild annular bulge. Bilateral facet arthropathy. Normal central canal. Moderate bilateral recess and neuroforaminal encroachment. L4-5: Normal endplates. Normal disc height, hydration and minor annular bulge. Mild facet arthropathy and thickening of ligamenta flava. Normal central canal and bilateral lateral recesses. Moderate bilateral recess and neuroforaminal stenosis. L5-S1: Normal endplates. Normal disc height, hydration and minimal annular bulge. Bilateral facet arthropathy. Normal central canal and bilateral lateral recesses. Mild bilateral neural foraminal encroachment Normal visualized sacral ala. Normal visualized paraspinous soft tissue structures. MRI/Spine Lumbar (Routine) IMPRESSION: No evidence for acute fracture or other significant bony pathology. Moderate spondylosis and disc degeneration Multilevel spinal stenosis secondary to disc disease and bony hypertrophy Electronically Signed: Felix Mahajan MD at 22:17 EST , Service support , CC: Moises Spencer MD; Jan Lua MD Patent Examiner: Signed ORBITS FOR FOREIGN Observed: 03/08/2018 Status: F Source: DONYA BODY 4:37 PM REPOSITORY [facility] Imaging Services [address] [place] [address] Orbits for Foreign Body MR#: [id number] Acct: [id number] Name: LAKESHIA JO Rep #: [id number] : 1965 53 From: Tim Rodriguez MD PCP: Jan Lua MD Status: REG CLI Study: Orbits for Foreign Body Date of Exam: 03/09/18 Exam# [id number] Ordering Dr: Moises Spencer MD STUDY: X-RAY - ORBITS REASON FOR EXAM: Male, 53 years old. This study is being performed as a clearance examination for exclusion of orbital metal, prior to the performance of an MRI examination. TECHNIQUE: 2 view(s) of the orbits were obtained. COMPARISON: None. FINDINGS: Normal bilateral orbits without a metallic orbital foreign body. Normal visualized facial bones. Normal paranasal sinuses. The soft tissue structures are unremarkable. RAD/Orbits for Foreign Body IMPRESSION: No demonstrated metallic orbital foreign body. The patient is cleared for an MRI examination. Electronically Signed: Tim Rodriguez MD at 17:08 EST , Service support , CC: Moises Spencer MD; Jan Lua MD Patent Examiner: Signed SI JOINTS Observed: 11/03/2017 Status: F Source: [facility] 11:18 AM [facility] REPOSITORY Final Report Accession No: [id number] Performed: Nov 03 2017 11:18AM Examination: SI JOINTS PROCEDURE: INTRAOPERATIVE FLUOROSCOPY, 11/03/2017 11:18 AM EDT CLINICAL HISTORY: SI joint injections TECHNIQUE: 2 fluoroscopic image(s) for review. Total fluoroscopy time was 15 seconds. COMPARISON: 10/28/2017 RESULT: Spinal needles overlie the sacroiliac joints bilaterally IMPRESSION: Intraoperative fluoroscopy. Please also refer to separate procedure report for additional details. Interpreting Physician: TIFFANY FERNANDEZ M.D. Trans: n/a : cc: OPERATION-PROCEDURE Observed: 11/03/2017 Status: F Source: [facility] 11:01 AM [facility] REPOSITORY [facility] [place] [address] NAME LAKESHIA JO [facility] [id number] 1965 DATE 11/03/2017 OPERATIVE REPORT / PROCEDURE NOTE SURGEON TAYLOR CHAN MD DIAGNOSIS Bilateral sacroiliac joint dysfunction. FINAL DIAGNOSIS Bilateral sacroiliac joint dysfunction. OPERATION PERFORMED Injections to both sacroiliac joints with Depo-Medrol and Marcaine. ANESTHESIA Local. TECHNIQUE With the patient in the prone position on the Kahlil table, both SI areas were prepped and draped sterilely. Under C-arm visualization, started on the right side first. A spinal needle was placed in the inferior aspect of the SI joint following which, a combination of 0.5 Marcaine and Depo-Medrol were injected and 1.25 of Marcaine and 0.75 of Depo-Medrol. Attention was directed to the right SI joint first and the left SI joint injected in identical fashion. The patient tolerated the procedure well and was sent to the outpatient area in satisfactory condition. MD Alida PAUL 11/03/2017 11:01 [id number] T 11/03/2017 11:27 MRV/MODL Electronically Signed By Taylor Chan M.D. on 04 Nov 2017 13:39:33 GMT SPINE LUMBAR 2 OR 3 Observed: 10/28/2017 Status: F Source: [facility] VIEWS 8:26 AM [facility] REPOSITORY Final Report Accession No: [id number] Performed: Oct 28 2017 8:26AM Examination: SPINE LUMBAR 2 OR 3 VIEWS CLINICAL HISTORY: Low back pain, pain in the right hip, no known injury. LUMBAR SPINE: 10/28/2017. COMPARISON: None. FINDINGS: Four views are acquired which demonstrate there are five lumbar type, nonrib-bearing vertebral bodies which are normally aligned without definite fractures, subluxations. There is mild disc space narrowing at L3-L4. There are minimal osteophytic spur formations at multiple levels. There is mild facet arthropathy at L4-L5, L5-S1. Surrounding soft tissues, visualized pelvic bones appear intact. There are vascular calcifications. IMPRESSION: 1. No acute fractures, subluxations. 2. Mild disc space narrowing at L3-L4 as well as some facet arthropathy at L4-L5, L5-S1. Interpreting Physician: ZULY AU M.D. Trans: jacinta : cc: XR SPINE LUMBOSACRAL 2 Observed: 10/21/2017 Status: F Source: ORTHODOXY OR 3 VIEWS 3:21 PM [facility] REPOSITORY Exam Date/Time: 10/21/2017 15:41 EDT Reason for Exam: lumbar pain with radiation down both legs Report STUDY: XR Spine Lumbosacral 2 or 3 Views; 10/21/2017 3:41 pm INDICATION: lumbar pain with radiation down both legs. COMPARISON: None. ACCESSION NUMBER(S): [id number] ORDERING CLINICIAN: Khang Fountain FINDINGS: 3 views of the lumbar spine including AP, lateral and lateral cone-down views were obtained. There is no acute fracture identified. Mild disc space narrowing and small to moderate marginal osteophytes are seen at the L2-3 level. Minimal discogenic degenerative changes are seen at the L1-2 and L3-4 levels. Dgbj-uq-pmhkaigx facet degenerative changes are seen throughout the lumbar spine. The disc spaces and posterior facet joints are well preserved throughout without significant degenerative changes. IMPRESSION: 1. No evidence of acute fracture. 2. Degenerative changes throughout the lumbar spine, as described above. FINAL REPORT Dictated: 10/22/2017 10:34 am Micheal Bonilla MD Signed (Electronic Signature): 10/22/2017 10:34 am Signed by: Micheal Bonilla MD Technologist: LÓPEZ XR HIP BILAT 3-4 Observed: 10/21/2017 Status: F Source: ORTHODOXY VIEWS + PELVIS 3:21 PM [facility] REPOSITORY Exam Date/Time: 10/21/2017 15:41 EDT Reason for Exam: bilateral hip pain Report STUDY: XR Hip Bilat 3-4 Views + Pelvis; 10/21/2017 3:41 pm INDICATION: bilateral hip pain. COMPARISON: None. ACCESSION NUMBER(S): [id number] ORDERING CLINICIAN: Khang Fountain TECHNIQUE: A single AP view of the pelvis as well as AP and lateral views each of the bilateral hips were obtained. FINDINGS: There is no acute fracture or dislocation identified. Mild hypertrophic degenerative changes are seen in the sacroiliac joints bilaterally. Multiple rounded calcifications are seen throughout the pelvis, most consistent with phleboliths. IMPRESSION: 1. No evidence of acute fracture or dislocation. 2. Degenerative changes, as described above. FINAL REPORT Dictated: 10/22/2017 10:36 am Micheal Bonilla MD Signed (Electronic Signature): 10/22/2017 10:36 am Signed by: Micheal Bonilla MD Technologist: LÓPEZ PSA TOTAL Collected: 07/29/2017 Status: F Source: ORTHODOXY 4:50 PM [facility] REPOSITORY TYPE CODE TESTS RESULT OUT OF RANGE REFERENCE UNITS LAB [id number](LO ng/mL INC) Normal PSA Total 0.37 Result Comment: AGE-SPECIFIC REFERENCE RANGES FOR SERUM PSA REFERENCE RANGE NG/ML AGE ASIANS BLACKS WHITE 40-49 0- 2 0-2 0-2.5 50-59 0- 3 0-4 0-3.5 60-69 0- 4 0-4.5 0-4.5 70-79 0- 5 0-5.5 0-6.5 PSA INCREASES WITH AGE, RACE, AND EJACULATION WITHIN 48 HRS. [facility] VOL24,NO.2, , PG.339 Performed By: #### [id number] #### [facility] [address] [place] [address] TSH Collected: 07/29/2017 Status: F Source: ORTHODOXY 4:50 PM [facility] REPOSITORY TYPE CODE TESTS RESULT OUT OF RANGE REFERENCE UNITS LAB [id number](LO 0.30-5.60 mIU/m INC) Normal TSH 2.12 Performed By: #### [id number] #### [facility] [address] [place] [address] NM MYOCARDIAL SPECT Observed: 06/15/2017 Status: F Source: ORTHODOXY MULTI REST/STRESS 5:55 AM [facility] REPOSITORY Exam Date/Time: 06/15/2017 09:15 EDT Reason for Exam: CAD JAVIER ORD CARD Report MULTIPLANAR MYOCARDIAL PERFUSION IMAGING WITH SPECT INDICATION: Coronary artery disease. COMPARISON: 12/10/2015. PROCEDURE: Multiplanar myocardial perfusion imaging is performed at rest and exercise. The patient was exercised, following the resting images, achieving a maximum heart rate of 137. The maximum predicted heart rate is 168. Doses: Rest- 12.2 millicuries of technetium-99 sestamibi Stress- 45 millicuries of technetium-99 sestamibi FINDINGS: Normal perfusion is seen in all segments of the left ventricle at rest and stress. No ischemic change is seen. There is mild left ventricular dilatation.The summated stress score is 4 . Normal wall motion is seen on gated images at rest and stress. The LVEF at rest is 48%, with an end-systolic volume of 75 mL . Normal systolic thickening is seen. IMPRESSION: No evidence of myocardial ischemia. FINAL REPORT Dictated: 06/15/2017 4:13 pm Abdias Schwarz MD Signed (Electronic Signature): 06/15/2017 4:13 pm Signed by: Abdias Schwarz MD Technologist: CAM ALLERGIES ALLERGIES DATE TYPE / CODE NAME / CODE REACTION SEVERITY SOURCE Drug NO KNOWN [facility] Three Class/15438 ALLERGIES Repository 1003(SNOMED CT) Drug/973461 No Known Confucianist 003(SNOMED Allergies [facility] CT) System Repository ENCOUNTERS ENCOUNTERS ADMIT/DISCHARGE ACCOUNT NUMBER ADMITTING ENCOUNTER LOCATION SOURCE CLASS 03/09/2018 [id number] Ambulatory [facility] ding:MRI Repository 12/24/2017/12/25/19 [id number] Ambulatory [address] Repository lding:Karen romeroieldRoom: Room 3 11/23/2017 [id number] Ambulatory Building:[facility] SPORTSMEDGLE Three SSNER Repository 11/03/2017/11/04/19 [id number] Ambulatory Building:[place] [address] ORTHOGLESSNE Three R Repository 11/03/2017/11/04/[id number] Brittni Ambulatory [place] [address] Taylor lding:A10A [place] [facility] SurgRoom: [facility] A10A Repository E76AKql: A10A A10A11 10/30/2017 [id number] Ambulatory Building:[facility] ORTHOGLESSNE Three R Repository 10/28/2017 [id number] [facility] 10/28/2017/10/29/19 [id number] Ambulatory Building:[place] [address] ORTHOGLESSNE Three R Repository 10/21/2017/10/22/[id number] ding:[facility] Repository 10/21/2017 [id number] Ambulatory [address] [place] [address] Repository 08/12/2017 [id number] Ambulatory Building:[facility] MOCVCOLENTAN Three GYRIVERRD Repository 08/03/2017/08/04/19 [id number] [address] Rep[address] ing:Joeyla ndRoom: Room 1 07/29/2017/07/30/[id number] Gabriel, German Hirsch [address] ding[facility] Repository 07/29/2017/07/30/19 [id number] [place] [address] Khang Burton [facility] ding[facility] Repository 07/17/2017 [id number] [facility] Three D Repository 06/15/2017/06/16/19 [id number] JAVIER, Ambulatory Building:[place] [address] G[address] MOCVCOUTSIDE Three LOCATION Repository 06/15/2017/06/16/[id number] ding:[facility] Repository 06/15/2017 [id number] Ambulatory Building:[facility] Three D Repository 06/08/2017/06/09/19 [id number] Ambulatory Building:[place] [address] HCCENTERST Three Repository 04/21/2017/04/21/19 [id number] [place] [address] Chun Alida [facility] ding:[facility] B Repository PAYERS PAYERS ENCOUNTER GUARANTOR PAYER SUBSCRIBER SOURCE 03/09/2018 LAKESHIA Irwin Primary LAKESHIA Villeda [id number] Insurance:ANTHEMPolic CLANTZDOB: [facility] Number: [id number] [place] [id number] Repository [address]Ima: 419) Date:7174-53-16MW [phone] () [place], [place] [address]FS: 03/09/2018 Secondary NOT GIVENUNK Louisa Insurance:SELF PAY [facility] Number: Effective Repository Date:2018-03-03 12/24/2017 LAKESHIA Irwin Primary LAKESHIA Irwin Confucianist CLANTZDOB: Insurance:1500 CLANTZDOB: [facility] [id number] ANTHEMPolicy Number: [id number] System [place] Effective [place], [place] Date:2017-12-24 [facility] [place] [address]Djx: [id number] [address]Bon: Name:CD:[id number] O (HP) [address] [place] [address] ()Tel: [phone]: (wp) [phone] 11/23/2017 LAKESHIA JODOB: Primary LAKESHIA CLANTZDOB: [place] [facility] [id number] Three Repository JASON Number: JASON [facility] [id number] [facility] [address]Qip: Date:2013-03-3005 [id number] [address] () [place], [place] [address]DI: 11/23/2017 Secondary LAKESHIA JODOB: [place] [facility] [id number] Three Repository Number: JASON [id number]. [facility], Date:2015-03-30 [place] [address] [id number] [address], [place] [address]GQ: 11/23/2017 Tertiary LAKESHIA MARTINSB: [place] [facility] Insurance:MEDICAIDPol [id number] Three Repository icy Number: JASON [id number]. [facility], Date:2015-08-29 - [place] [address]Ehv: [id number] [address], [place] (HP) [address]RQ: 11/23/2017 Tertiary LAKESHIA JODOB: [place] [facility] Insurance:CARESOURCE [id number] Three Repository MANAGED JASON MEDICAIDPolicy [place], Number: [place] [address]Lxi: [id number] Date:2016-04-30 - (HP) [id number] [address] [address]DN: 11/03/2017 LAKESHIA CLANTZDOB: Primary LAKESHIA CLANTZDOB: [facility] Insurance:ANTHEMPolic [id number] Three Repository JASON chaudhary Number: JASON PEPE [id number] [place] [address]Qix: Date:3999-75-[place] [address]EWOYQTZ, [place] () [address]LK: 11/03/2017 Primary LAKESHIA CL[place]DOB: [place] Cross [id number] [place] [facility]di Number: JASON [facility] [id number]. [facility], Repository Date:Plan Name:Health [place] [address]Oox: (ML) 10/30/2017 LAKESHIA CLANTZDOB: Primary LAKESHIA CLANTZDOB: [facility] Insurance:ANTHEMPolic [id number] Three Repository JASON chaudhary Number: JASON PEPE [id number] Hospital [address]Dwr: Date:2013-03-30 [id number] [address] (LM) [address], [place] [address]BG: 10/30/2017 Secondary LAKESHIA CLANTZDOB: [place] [facility] Insurance:AETNAPolicy [id number] Three Repository Number: JASON [id number]. [facility], Date:2015-03-30 [place] [address] [id number] [address] [address]GD: 10/30/2017 Tertiary LAKESHIA CLANTZDOB: [place] [facility] Insurance:MEDICAIDPol [id number] Three Repository icy Number: JASON [id number]. [facility], Date:2015-08-29 - [place] [address]Onv: [id number] [address] [place] [address] (HP) [phone]: 10/30/2017 Tertiary LAKESHIA GUZMÁNZDOB: [place] [facility] Insurance:CARESOURCE [id number] Three Repository MANAGED [place] MEDICAIDPolicy [address], Number: [place] [address]Dnj: [id number] Date:2016-04-30 - (HP) [id number] [address] [address]BJ: 10/28/2017 Primary LAKESHIA GUZMÁNZDOB: [facility] Insurance:[facility] [id number] [address] Number: [facility] [id number]. [facility], [facility] Date:Plan Name:[place] [address]Rly: (HP) 10/28/2017 LAKESHIA JODOB: Primary LAKESHIA JODOB: [facility] Insurance:ANTHEMPolic [id number] Three Repository [facility] Number: [facility], [id number], [place] [address]Ued: Date:1195-29-11[place] [address] [place]908[place]HL[place], [place] () [address]JA: 10/21/2017 LAKESHIA Irwin Primary LAKESHIA MARTINSB: Insurance:ANTHEMPolic CLANTZDOB: [facility] y Number: Effective [id number] [facility] Date:2017-11-06 - [place] Repository [place] 7811-86-34Zbon[address] [place] [address]Kmx: Name:[facility] [address]Lnv: [id number], [place] (HP) [address]RV: (161) () [phone] () 10/21/2017 LAKESHIA D Primary LAKESHIA Irwin [facility]: Insurance:Self CLANTZDOB: Hospitals PayPolicy Number: [id number] Repository JASON Effective Date:Plan GOMEZESTEFANIA TORRE [place] Name:RAINER Downing [id number]: [id number]: (HP) (HP) 08/12/2017 [facility] Primary [facility] [place] [facility] Insurance:[facility] [id number] Three Repository JASON y Number: JASON [facility] [id number] [place], [facility] [address]Acu: Date:2013-03-30 [id number] BOX (HP) 856763[place]OBZ, [place] [address]NE: 08/12/2017 Secondary [facility] [place] [facility] Insurance:AETNAPolicy [id number] Three Repository Number: JASON [id number] [facility], Date:2015-03-30 - [place] [address] [id number] [address] [address]HZ: 08/12/2017 Tertiary [facility] [place] [facility] Insurance:MEDICAIDPol [id number] Three Repository icy Number: JASON [id number] [facility], Date:2015-08-29 - [place] [address]Fni: [id number] [address], [place] (HP) [address]CY: 08/12/2017 Tertiary [facility] [place] [facility] Insurance:CARESOURCE [id number] Three Repository MANAGED JASON MEDICAIDPolicy [address], Number: [place] [address]Vzl: [id number] Date:6036-82-46SB [address] (HP) [address] [address]AP: 08/03/2017 LAKESHIA D Primary LAKESHIA Taylor CLANTZDOB: Insurance:[address] [place], [place] [address]B: [facility] [id number] [facility] [place] Repository [place], [place] Number: [place] [address]Dhu: Date:2017-08-03Tel: [id number] (HP) Name:CD:[id number] O (HP)Tel: (000) [address] [place] [address] [phone] (WP) [address]ES: 07/29/2017 LAKESHIA D Primary LAKESHIA Taylor CLANTZDOB: Insurance:[facility]FORM[facility]LY [facility]: [facility] MCAIDPolicy Number: [id number] [facility] Repository [facility] [place] [place] Date:2017-07-29 [place] [address]Yit: [id number] [address]Upu: Name:CD:[id number] (HP) [address] [place] [address] (HP)Tel: [phone]: (WP) [phone] 07/29/2017 LAKESHIA D Primary LAKESHIA Taylor CLANTZDOB: Insurance:[facility]ITAL[facility]: [facility] MCAIDPolicy Number: [id number] System [facility] Repository [facility] [place] [place] Date:2017-07-29 [place] [address]Kyn: 3881-78-26Nrrx [address]Wvo: Name:CD:[id number] (HP) [address] [place] [address] (HP)Tel: [phone]: (wp) [phone] 07/17/2017 LAKESHIA CLANTZDOB: Primary LAKESHIA CLANTZDOB: [facility] Insurance:ANTHEMPolic [id number] Three Repository JASON y Number: JASON SCANLONGARRARD [id number] [place], [place] [address]Srd: Date:2013-03-30 - [address] [id number] BOX (HP) [address], [place] [address]CU: 07/17/2017 Secondary LAKESHIA CLANTZDOB: [place] [facility] Insurance:AETNAPolicy [id number] Three Repository Number: JASON [id number] [facility], Date:2015-03-30 - [place] [address] [id number] [address], [place] [address]YT: 07/17/2017 Tertiary LAKESHIA CLANTZDOB: [place] [facility] Insurance:MEDICAIDPol [id number] Three Repository icy Number: JASON [id number] [address], Date:2015-08-29 - [place] [address]Zjj: [id number] [address], [place] (HP) [address]AO: 07/17/2017 Tertiary LAKESHIA CLANTZDOB: [place] [facility] Insurance:CARESOURCE [id number] Three Repository MANAGED [place] MEDICAIDPolicy [place], Number: [id number]: [id number] Date:[id number] [address] (HP) [place], [place] [address]KW: 06/15/2017 LAKESHIA CLANTZDOB: Primary LAKESHIA CLANTZDOB: [facility] Insurance:CARESOURCE [id number] Three Repository GOMEZ MANAGED [address], MEDICAIDPolicy [place], [place] [address]Xis: Number: [place] [id number]: [id number] (HP) Date:7963-97-74VI [address]OX ([address]) [address] [address]LD: 06/15/2017 LAKESHIA Irwin Primary LAKESHIA Irwin Confucianist [facility] MCAIDPolicy Number: [id number] System JASON Melgar GOMEZ Repository [place], [place] Date:2017-06-08 [place] [address]Zie: [id number] [address]Wad: Name:CD:[id number] (HP) [address] [place] [address] (HP)Tel: [phone]: [phone] 06/15/2017 LAKESHIA JODOB: Primary LAKESHIA JODOB: [facility] [id number] Three Repository JASON y Number: CATHERINE [id number] [facility] [address]Mbe: Date:2013-03-30 [id number] [address]OX (HP) [place], [place] [address]EK: 06/15/2017 Secondary LAKESHIA MARTINSB: [place] [facility] Insurance:AETNAPolicy [id number] Three Repository Number: JASON [id number] [facility], Date:2015-03-30 - [place] [address] [id number] [address] [address]JR: 06/15/2017 Tertiary LAKESHIA MARTINSB: [place] [facility] Insurance:MEDICAIDPol [id number] Three Repository icy Number: JSAON [id number] [facility], Date:2015-08-29 - [place] [address]Icl: [id number] [address], [place] (HP) [address]VI: 06/15/2017 Tertiary LAKESHIA MARTINSB: [facility] Insurance:[facility] [id number] Three Repository MANAGED [place] MEDICAIDPolicy [place], Number: [place] [id number]: [id number] Date:2005-41-51FI BOX (HP) [address] [place] [address]FC: 06/08/2017 LAKESHIA GUZMÁNZDOB: Primary LAKESHIA ENRIQUENTZDOB: [facility] Insurance:[facility] [id number] Three Repository SHERMAN MANAGED [address], MEDICAIDPolicy [place], [place] [address]Pwb: Number: [place] [id number]: [id number] (HP) Date:8921-08-18CD [address] () [address] [place] [address]TC: 04/21/2017 LAKESHIA Irwin Primary LAKESHIA Irwin Confucianistjass JODOB: Insurance:[facility]: [facility] Number: [facility] [id number] [facility] Date:2017-04-21 [place], [place] [id number] [place] [address]Hbn: Name:CD:[id number]: [place], [place] (HP) [address]HM: [phone] ([phone] ()
--- OUTSIDE RECORDS SUMMARY | 2018-04-25 23:41 | XMS RPT_ITS | Summary of Care ---
:1965 Author Organization [facility] Address [address] [place] [address] Care Team Providers Name Role Phone Ricky Lua DO Primary Care Provider Unavailable Reason for Referral Physical Therapy (Routine) Status Reason Specialty Diagnoses / Referred By Referred To Procedures Contact Contact Authorized Patient Physical Therapy / Diagnoses Degenerative lumbar disc SI (sacroiliac) joint inflammation (HCC) [facility] Angelica Milan CNP [address] [place] [address] Reason for Visit Reason Comments Pain Pain Encounter Details Date Type Department Care Team Description 10/28/2017 Office Visit [facility] Orthopedic Angelica Ambrose Degenerative lumbar disc (Primary Dx); and Sports Medicine KOBI Milan SI (sacroiliac) joint inflammation (HCC) [address] Medical Office [place], [place] [address] [place] [address] [phone] [address] [phone] Allergies No Known Allergiesas of this encounter Medications Prescription Sig. Disp. Refills Start Date End Date Status aspirin 81 MG EC tablet Take 81 mg by Active mouth daily. omeprazole (PRILOSEC) 40 Take 1 90 capsule 3 06/09/2016 Active MG capsule capsule (40 mg total) by mouth daily. hydroCHLOROthiazide Take 1 (one) 90 tablet 3 09/15/2016 Active (HYDRODIURIL) 25 MG tablet (25 mg tablet total) by mouth daily. nitroGLYCERIN (NITROSTAT) Place 1 (one) 25 tablet 4 09/15/2016 Active 0.4 MG SL tablet (0.4 tabletIndications: mg total) Coronary artery disease under the involving [place] coronary tongue every artery of [place] heart 5 (five) without angina pectoris minutes as needed for chest pain. levothyroxine (SYNTHROID, Take 125 mcg Active LEVOTHROID) 125 MCG by mouth once tablet daily. fexofenadine (SHIVA) Take 180 mg Active 180 MG tablet by mouth daily. atorvastatin (LIPITOR) 80 Take 1 (one) 90 tablet 3 06/15/2017 06/15/2018 Active MG tablet tablet (80 mg total) by mouth daily. valsartan (DIOVAN) 160 MG Take 1 (one) 90 tablet 3 06/15/2017 Active tablet tablet (160 mg total) by mouth daily. metoprolol succinate Take 1 (one) 90 tablet 3 06/15/2017 Active (TOPROL-XL) 50 MG 24 hr tablet (50 mg tablet total) by mouth daily. clopidogrel (PLAVIX) 75 Take 1 (one) 90 tablet 3 06/15/2017 Active mg tablet tablet (75 mg total) by mouth daily. sildenafil, Take 1 (one) 30 tablet 0 06/25/2017 06/25/2018 Active antihypertensive, tablet (20 mg (REVATIO) 20 mg tablet total) by mouth daily Or as directed. traMADol (ULTRAM) 50 mg Take 1 (one) 28 tablet 0 10/28/2017 11/04/2017 Active tabletIndications: SI tablet (50 mg (sacroiliac) joint total) by inflammation (HCC) mouth every 6 (six) hours as needed for pain. as of this encounter Active Problems Problem Noted Date ED (erectile dysfunction) 06/08/2017 Last Assessment & Plan: Discussed his issue. I told him to stop his Imdur for days before his stress test and will see. If his stress is negative we can give a trial of Cialis or Viagra. I also told him to make sure that he does take his beta-nnamdi prior to his stress test. Chest pain 03/30/2017 Last Assessment & Plan: [...] Patient can follow-up with Dr. Pond in [place]. No further inpatient evaluation is indicated at this time. Recommend returning to work on April 02. Coronary artery disease involving [place] coronary artery of [place] heart 09/17/2015 without angina pectoris Overview: 04/2014-Cx and RPL stents 06/2016 cath 70% prox r ffr-0.96 stents ok Last Assessment & Plan: Vicelike pain is gone last year but new upper chest feeling that goes to neck a different feeling with exertion Difficult to discern and concerning Stress cl Claudication (HCC) 09/17/2015 Overview: R Calf-2016 with [...] Vital Sign Reading Time Taken Blood Pressure 146/83 10/28/2017 8:01 AM EDT Pulse 63 10/28/2017 8:01 AM EDT Temperature - - Respiratory Rate - - Oxygen Saturation - - Inhaled Oxygen Concentration - - Weight 111.1 kg (245 lb) 10/28/2017 8:01 AM EDT Height 180.3 cm (5' 11) 10/28/2017 8:01 AM EDT Body Mass Index 34.17 10/28/2017 8:01 AM EDT in this encounter Progress Notes Angelica Ambrose CNP - 10/26/2017 10:26 AM EDTFormatting of this note may be different from the original. OFFICE NOTE [facility] [address] (11) [facility] [address] [facility] [address] Physicians: Ricky Lua, (Family); No ref. provider found (Referring) Subjective: Gerardo Cook is a 52 y.o. male seen in the office today for Pain of the Left Hip and Pain of the Right Hip .He was told by his family doctor that he has hip arthritis but his main complaint is over his lowerback and radiates down his left leg to his foot. There is extreme weakness and he states his left leg feels so tired that it feels as though it will give way . He cannot shop or walk for more than 20 mi nutes without having to sit down. He does have history of low back problems and has been seeing a chiropractor for years. The last adjustment he had last week caused him extreme pain and he did not leave house for 2 days. She prescribed flexeril, prednisone, and tramadol which was of no benefit. HPI: Back Pain Patient presents for evaluation of low back problems. Symptoms have been present for weeks and includeback pain, low back pain, numbness, tingling and weakness. Initial inciting event: none. Symptoms are worse in the morning, in the middle of the day, in the afternoon, in the evening and at nighttime. Alleviating factors identifiable by the patient are recumbency and sitting. Aggravating factors identifiable by the patient are bending backwards, increased intrathoracic pressure (cough, sneeze, etc.), sitting, standing and walking. Treatments initiated by the patient:steroids, NSAIDS, Chiropractic and Narcotics. +/compression test +/jeannie dusty test + emma finger test Pain Down leg to knee of bilateral legs Pain from sitting to standing Pain from trauma Assessment & Plan: Bilateral SI joint injections: has failed chiropractic and steroids Physical therapy for lumbar spine and SI joint for 6 weeks. If no improvement then MRI. Follow Up Ordered: Return in about 6 weeks (around 12/09/2017). Histories: Past Medical History: Diagnosis Date ??? CAD (coronary artery disease) ??? COPD (chronic obstructive pulmonary disease) (HCC) ??? Hyperlipidemia ??? Hypertension ??? Hypothyroidism ??? MVP (mitral valve prolapse) ??? ALIS (obstructive sleep apnea) Past Surgical History: Procedure Laterality Date ??? CARDIAC CATHETERIZATION N/A 05/09/2014 [facility] CX Mid; Surgeon: Gadiel Buckley MD; Location: [facility]; Service: ??? CARDIAC CATHETERIZATION N/A 05/18/2014 [facility] Posterior Lateral Branch Distal; Surgeon: Gadiel Buckley MD; Location: [facility]; Service: ??? CARDIAC CATHETERIZATION N/A 07/15/2016 Procedure: Left Heart Cath Possible PTCA/Stent; Surgeon: Gadiel Buckley MD; Location: [facility]; Service: ??? CARDIAC CATHETERIZATION ??? CORONARY STENT PLACEMENT 05/09/14 ??? HERNIA REPAIR x 2 ??? SHOULDER SURGERY Family History Problem Relation Age of Onset ??? Heart disease Father ??? Hypertension Father ??? Heart attack Father ??? Heart failure Father ??? Heart failure Mother Social History Substance Use Topics ??? Smoking status: Current Every Day Smoker Packs/day: 1.00 Years: 40.00 ??? Smokeless tobacco: Never Used ??? Alcohol use 0.0 oz/week Comment: Rare alcohol use Outpatient Prescriptions as of 10/28/2017 Medication Sig ??? aspirin 81 MG EC tablet Take 81 mg by mouth daily. ??? atorvastatin (LIPITOR) 80 MG tablet Take 1 (one) tablet (80 mg total) by mouth daily. ??? clopidogrel (PLAVIX) 75 mg tablet Take 1 (one) tablet (75 mg total) by mouth daily. ??? fexofenadine (SHIVA) 180 MG tablet Take 180 mg by mouth daily. ??? hydroCHLOROthiazide (HYDRODIURIL) 25 MG tablet Take 1 (one) tablet (25 mg total) by mouth daily. ??? levothyroxine (SYNTHROID, LEVOTHROID) 125 MCG tablet Take 125 mcg by mouth once daily. ??? metoprolol succinate (TOPROL-XL) 50 MG 24 hr tablet Take 1 (one) tablet (50 mg total) by mouth daily. ??? nitroGLYCERIN (NITROSTAT) 0.[address] 1 (one) tablet (0.4 mg total) under the tongue every 5 (five) minutes as needed for chest pain. ??? omeprazole (PRILOSEC) 40 MG capsule Take 1 capsule (40 mg total) by mouth daily. ??? sildenafil, antihypertensive, (REVATIO) 20 mg tablet Take 1 (one) tablet (20 mg total) by mouth daily Or as directed. ??? valsartan (DIOVAN) 160 MG tablet Take 1 (one) tablet (160 mg total) by mouth daily. No Known Allergies Review of Systems Constitutional: Negative for chills, diaphoresis and fever. Respiratory: Negative for shortness of breath. Cardiovascular: Negative for chest pain, palpitations and leg swelling. Genitourinary: Negative for frequency and urgency. Musculoskeletal: Positive for arthralgias, back pain and gait problem. Skin: Negative for color change, rash and wound. Neurological: Positive for numbness. Negative for dizziness, syncope and weakness. Psychiatric/Behavioral: Negative for agitation. The patient is not nervous/anxious. Overview of Problems Addressed: Lumbar pain and radicular pain Objective: Vitals: BP (!) 146/83 Pulse 63 Ht 5' 11 Wt 111.1 kg (245 lb) BMI 34.17 kg/m?? Physical Exam Constitutional: He is oriented to person, place, and time. He appears well- developed and well-nourished. HENT: Head: Normocephalic and atraumatic. Eyes: Pupils are equal, round, and reactive to light. Neck: Normal range of motion. Neck supple. Cardiovascular: Normal rate and regular rhythm. Pulmonary/Chest: Effort normal and breath sounds normal. Abdominal: Soft. Bowel sounds are normal. Musculoskeletal: He exhibits tenderness. Neurological: He is alert and oriented to person, place, and time. He has normal reflexes. Skin: Skin is warm and dry. , Lower Back Exam tenderness: yes, straight leg raising sign: yes, motor exam: weak and reflexes decreasedcompalins of+/pain on palpation,+ pain on extension, - pain with flexion, decreased strength lumbar and altered gait, DTR's symmetrical and intact. X-Rays: Office films, Lumbar 2 Views. Degenerative disc disease seen at level: L5 and S1 Hip xrays from [facility] were reviewed which showed mild arthritis b/l hips with adequate joint spacing. Mild SI arthritis SNOMED CT(R) 1. Degenerative lumbar disc DEGENERATION OF LUMBAR INTERVERTEBRAL DISC Angelica Ambrose CNP in this encounter Plan of Treatment Upcoming Encounters Date Type Specialty Care Team Description 11/03/2017 Hospital Encounter [facility] El[facility] [address] [facility] [place] [address] [phone] 11/03/2017 Scanned Document Orthopedic Surgery Mor Elkins MD [address] [facility] [place] [address] [phone] Scheduled Tests Name Priority Associated Diagnoses Order Schedule XR Lumbar Spine 2-3 Routine Degenerative lumbar disc 1 Occurrences starting Views (Standard) 10/28/2017 until 10/28/2018 Scheduled Referrals Name Priority Associated Diagnoses Order Schedule Ambulatory ref to Therapy Routine Degenerative lumbar disc 1 Occurrences starting (PT/OT/ST) SI (sacroiliac) joint 10/28/2017 until inflammation (HCC) 10/28/2018 Health Maintenance Due Date Last Done Comments COLONOSCOPY 1965 HEPATITIS C SCREENING 1965 TETANUS EVERY 10 YR 1965 SEQUENTIAL INFLUENZA VACCINE (#1) 2017 as of this encounter Implants Implanted Type Area Stringed Instrument Assembler Device Identifier Expiration Model / Serial / Date Lot Stent 3.5 X 12 Resolute Otw - [id number] Stent N/A: [employer] [id number] 07/14/2014 [id number] / Implanted: Qty: 1 on 05/09/2014 by Gadiel Buckley MD Heart / [id number] Stent 2.5 X 12 Resolute Otw - [id number] Stent [employer] [id number] 06/06/2015 [id number] / Implanted: Qty: 1 on 05/18/2014 by Gadiel Buckley MD [id number] / [id number] as of this encounter Visit Diagnoses Diagnosis Degenerative lumbar disc - Primary SI (sacroiliac) joint inflammation (HCC)
--- OUTSIDE RECORDS SUMMARY | 2018-04-25 23:41 | XMS RPT_ITS | Summary of Care ---
:1965 Author Organization [facility] Address [address] [place] [address] Care Team Providers Name Role Phone Stoney Ricky Steve RAMIREZ Primary Care Provider Unavailable Reason for Referral Nuclear Medicine (Routine) Status Reason Specialty Diagnoses / Referred By Referred To Procedures Contact Contact Authorized Radiology Diagnoses Coronary artery disease involving [place] coronary artery of [place] heart without angina pectoris Gadiel Buckley Procedures NM Myocardial Perfusion Multiple SPECT MD Jaime [address] [place] [address] Reason for Visit Nuclear Medicine (Routine) Status Reason Specialty Diagnoses / Referred By Referred To Procedures Contact Contact Authorized Radiology Diagnoses Coronary artery disease involving [place] coronary artery of [place] heart without angina pectoris Gadiel Buckley Procedures NM Myocardial Perfusion Multiple SPECT MD Jaime [address] [place] [address] Encounter Details Date Type Department Care Team Description 06/15/2017 Documentation [facility] Physicians Gadiel Buckley, Arrived Group [address] [place] [address] Allergies No Known Allergiesas of this encounter Medications Prescription Sig. Disp. Refills Start Date End Date Status aspirin 81 MG EC tablet Take 81 mg by Active mouth daily. omeprazole (PRILOSEC) 40 Take 1 capsule 90 capsule 3 06/09/2016 Active MG capsule (40 mg total) by mouth daily. hydroCHLOROthiazide Take 1 (one) 90 tablet 3 09/15/2016 Active (HYDRODIURIL) 25 MG tablet (25 mg tablet total) by mouth daily. nitroGLYCERIN Place 1 (one) 25 tablet 4 09/15/2016 Active (NITROSTAT) 0.4 MG SL tablet (0.4 mg tabletIndications: total) under the Coronary artery disease tongue every 5 involving [place] (five) minutes coronary artery of as needed for [place] heart without chest pain. angina pectoris levothyroxine Take 125 mcg by Active (SYNTHROID, LEVOTHROID) mouth once 125 MCG tablet daily. fexofenadine (SHIVA) Take 180 mg by Active 180 MG tablet mouth daily. isosorbide mononitrate Take 1 (one) 30 tablet 11 03/31/2017 Active (IMDUR) 60 MG 24 hr tablet (60 mg 8 tablet total) by mouth daily. atorvastatin (LIPITOR) Take 1 (one) 90 tablet 3 06/15/2017 Active 80 MG tablet tablet (80 mg 9 total) by mouth daily. valsartan (DIOVAN) 160 Take 1 (one) 90 tablet 3 06/15/2017 Active MG tablet tablet (160 mg total) by mouth daily. metoprolol succinate Take 1 (one) 90 tablet 3 06/15/2017 Active (TOPROL-XL) 50 MG 24 hr tablet (50 mg tablet total) by mouth daily. clopidogrel (PLAVIX) 75 Take 1 (one) 90 tablet 3 06/15/2017 Active mg tablet tablet (75 mg total) by mouth daily. tadalafil (CIALIS) 20 MG Take 1 (one) 5 tablet 6 06/15/2017 Active tabletIndications: tablet (20 mg 9 Erectile dysfunction due total) by mouth to arterial as needed for insufficiency erectile dysfunction Take prior to sexual activity. as of this encounter Active Problems Problem [...] Patient can follow-up with Dr. Pond in [place]. No further inpatient evaluation is indicated at this time. Recommend returning to work on April 02. Coronary artery disease involving [place] coronary artery of [place] heart 09/17/2015 without angina pectoris Overview: 04/2014-Cx [...] Not on file as of this encounter Plan of Treatment Health Maintenance Due Date Last Done Comments COLONOSCOPY 1965 HEPATITIS C SCREENING 1965 TETANUS EVERY 10 YR 1965 SEQUENTIAL INFLUENZA VACCINE (#1) 2016 as of this encounter Implants Implanted Type Area Mission Coordinator Device Identifier Expiration Model / Serial / Date Lot Stent 3.5 X 12 Resolute Otw - [id number] Stent N/A: [employer] [id number] 07/14/2014 [id number] / Implanted: Qty: 1 on 05/09/2014 by Gadiel Buckley MD Heart / [id number] Stent 2.5 X 12 Resolute Otw - [id number] Stent [employer] [id number] 06/06/2015 [id number] / Implanted: Qty: 1 on 05/18/2014 by Gadiel Buckley MD [id number] / [id number] as of this encounter Results NM Myocardial Perfusion Multiple SPECT (06/15/2017 4:36 PM) Component Value Ref Range Brasher Treadmill Score Specimen Performing Laboratory EXTERNAL RESULTS in this encounter Visit Diagnoses Diagnosis Coronary artery disease involving [place] coronary artery of [place] heart without angina pectoris Insurance Payer Benefit Plan / Group Subscriber ID Type Phone Address [employer] MANAGED MEDICAID [employer] MEDICAID xxxxxxxxxxx as of this encounter
--- OUTSIDE RECORDS SUMMARY | 2018-04-25 23:41 | XMS RPT_ITS | Summary of Care ---
:1965 Author Organization [facility] Address [address] [place] [address] Care Team Providers Name Role Phone Ricky Lua Primary Care Provider Unavailable Encounter Details Date Type Department Care Team Description 11/05/2017 Documentation [facility] Orthopedic & Karyna Rangel, MECHANIC INSULATOR Sports Medicine Physicians [address] [id number] Allergies No Known Allergiesas of this encounter [...] total) Coronary artery disease under the involving [place] coronary tongue every artery of [place] heart 5 (five) without angina pectoris minutes [...] total) by mouth daily Or as directed. as of this encounter Active Problems Problem [...] Patient can follow-up with Dr. Pond in [place]. No further inpatient evaluation is indicated at this time. Recommend returning to work on April 02. Coronary artery disease involving [place] coronary artery of [place] heart 09/17/2015 without angina pectoris Overview: 04/2014-Cx [...] Not on file as of this encounter Progress Notes Karyna Rangel LPN - 11/05/2017 3:14 PM EDTHave attempted x 3 to fax work slip to [employer] for pt. [phone] and then [phone] which was given from [employer].in this encounter Plan of Treatment Health Maintenance Due Date Last Done Comments COLONOSCOPY 1965 HEPATITIS C SCREENING 1965 TETANUS EVERY 10 YR 1965 SEQUENTIAL INFLUENZA VACCINE (#1) 2017 as of this encounter Implants Implanted Type Area Health Evaluator Device Identifier Expiration Model / Serial / Date Lot Stent 3.5 X 12 Resolute Otw - [id number] Stent N/A: [employer] [id number] 07/14/2014 [id number] / Implanted: Qty: 1 on 05/09/2014 by Gadiel Buckley MD Heart / [id number] Stent 2.5 X 12 Resolute Otw - [id number] Stent [employer] [id number] 06/06/2015 [id number] / Implanted: Qty: 1 on 05/18/2014 by Gadiel Buckley MD [id number] / [id number] as of this encounter
--- OUTSIDE RECORDS SUMMARY | 2018-04-25 23:41 | XMS RPT_ITS | Summary of Care ---
:1965 Author Organization [facility] Address [address] [place] [address] Care Team Providers Name Role Phone LuaRicky camejo Primary Care Provider Unavailable Encounter Details Date Type Department Care Team Description 10/28/2017 Hospital Encounter [facility] Angelica Ambrose, [address] POUNCING MACHINE OPERATOR [place], [place] [address] [id number] [place] [address] Allergies No Known Allergiesas of this encounter [...] total) Coronary artery disease under the involving ambler coronary tongue every artery of ambler heart 5 (five) without angina pectoris minutes [...] Patient can follow-up with Dr. Pond in [place]. No further inpatient evaluation is indicated at this time. Recommend returning to work on April 02. Coronary artery disease involving ambler coronary artery of ambler heart 09/17/2015 without angina pectoris Overview: 04/2014-Cx [...] as of this encounter Plan of Treatment Upcoming Encounters Date Type Specialty Care Team Description 11/03/2017 Hospital Encounter Mor Elkins MD [address] [place] [address] [phone] 11/03/2017 Scanned Document Orthopedic Surgery Mor Elkins MD [address] [place] [address] [phone] Health Maintenance Due Date Last Done Comments COLONOSCOPY 1965 HEPATITIS C SCREENING 1965 TETANUS EVERY 10 YR 1965 SEQUENTIAL INFLUENZA VACCINE (#1) 2017 as of this encounter Implants Implanted Type Area Major Gifts Manager Device Identifier Expiration Model / Serial / Date Lot Stent 3.5 X 12 Resolute Otw - [id number] Stent N/A: [employer] [id number] 07/14/2014 [id number] / Implanted: Qty: 1 on 05/09/2014 by Gadiel Buckley MD Heart / [id number] Stent 2.5 X 12 Resolute Otw - [id number] Stent [employer] [id number] 06/06/2015 [id number] / Implanted: Qty: 1 on 05/18/2014 by Gadiel Buckley MD [id number] / [id number] as of this encounter
== END ==
PROVIDERS: Referring Provider Anesthesiology Pain Medicine; Visit Provider Anesthesiology Pain Medicine
DX: M54.9 Dorsalgia, unspecified (principal); M79.606 Pain in leg, unspecified
CPT/HCPCS: 70030; 72148

== ENCOUNTER → 2019-01-18 10:58 | Outpatient (CLI) | payer BC, SELFPAY ==
[2019-01-18 10:45] VITALS: BMI 32.8
--- NOTE | 2019-01-18 10:59 | RAD_ITS ---
STUDY: X-RAY - LUMBAR SPINE REASON FOR EXAM: Male, 53 years old. Pain. TECHNIQUE: 4 view(s) of the lumbar spine were obtained including flexion and extension. COMPARISON: None FINDINGS: Normal lumbar lordosis. There is no substantial scoliosis. There is a normal alignment of the vertebrae. There is significantly limited flexion and extension, with no subluxations. There is multilevel endplate spondylosis of the lumbar vertebrae. There is mild multi-level degenerative disc disease with multi-level disc space narrowing. There is no demonstrated fracture. The soft tissue structures are unremarkable. RAD/L/S Spine Min 4 Views IMPRESSION: Acute abnormality. Mild multilevel degenerative disc disease. No acute abnormalities. Decreased range of motion with no subluxations. Electronically Signed: Jam Owens MD at 23:39 EDT , Service support ,
== END ==
PROVIDERS: Referring Provider Orthopaedic Surgery; Visit Provider Orthopaedic Surgery
DX: M54.5 Low back pain (principal)
CPT/HCPCS: 72110

== ENCOUNTER → 2019-01-24 17:17 | Outpatient (CLI) | payer BC, SELFPAY ==
[2019-01-18 10:45] VITALS: BMI 32.8
[2019-01-24 17:45] LABS: Amphetamine Urine VISTA NEGATIVE (<1000 ng/mL); Barbiturate Urine VISTA NEGATIVE (< 200 ng/mL); Benzodiazepine Urine VISTA NEGATIVE (< 200 ng/mL); Cocaine Urine VISTA NEGATIVE (< 300 ng/mL); Ecstacy Urine VISTA NEGATIVE (< 500 ng/mL); Methadone Urine VISTA NEGATIVE (< 300 ng/mL); PCP Urine VISTA NEGATIVE (< 25 ng/mL); THC Urine VISTA NEGATIVE (< 50 ng/mL); Vista UDS pH Range 6
== END ==
PROVIDERS: Referring Provider Anesthesiology Pain Medicine; Visit Provider Anesthesiology Pain Medicine
DX: F11.20 Opioid dependence, uncomplicated (principal)
CPT/HCPCS: 80307